=== PATIENT | female | born 1990 | race Hispanic/Latino ===

== ENCOUNTER 2018-05-26 20:41 | Emergency (ER) | payer SELFPAY ==
[2018-05-26 23:20] LABS: BASO # 0.1 K/uL (0.0-0.2); BASO % 1.2 % (0.0-2.0); EOS # 0.1 K/uL (0.0-0.7); EOS % 1.7 % (0.0-4.0); HEMOGLOBIN 13.3 g/dL (12.0-16.0); LYMPH # 2.1 K/uL (1.0-4.3); LYMPH % 33.5 % (20.0-40.0); MEAN CELL VOLUME 92.9 fl (81.0-99.0); MEAN CORPUSCULAR HEMOGLOBIN 31.3 pg (27.0-31.0); MEAN CORPUSCULAR HGB CONC 33.7 g/dL (33.0-37.0); MEAN PLATELET VOLUME 10.7 fl (7.2-11.7); MONO # 0.6 K/uL (0.0-0.8); MONO % 10.3 % (0.0-10.0); NEUT # 3.3 K/uL (1.8-7.0); NEUT % 53.3 % (50.0-75.0); RBC 4.25 Mil/uL (3.80-5.20); RED CELL DISTRIBUTION WIDTH 13.1 % (11.5-14.5); WHITE BLOOD COUNT 6.2 K/uL (4.8-10.8)
[2018-05-26 23:29] LABS: BLOOD UREA NITROGEN 8 mg/dl (7-17); CALCIUM 9.4 mg/dL (8.4-10.2); GFR NON-AFRICAN AMERICAN > 60
--- NOTE | 2018-05-26 23:37 | ED PDOC ---
Lower Extremity Pain/Injury Time Seen by Provider: 05/26/18 22:47 Chief Complaint (Nursing): Lower Extremity Problem/Injury History Per: Patient History/Exam Limitations: no limitations Onset/Duration Of Symptoms: Days Current Symptoms Are (Timing): Still Present Additional Complaint(s): 27 year old F with no PMHx presenting with leg ulcer to L lower extremity. States she sustained a cut one month ago an since then the wound has grown deeper and further inwards. Went to an urgent care yesterday and was prescribed keflex of which she's taken 4 doses so far. PAtient states she was sent from Urgent Care today to the ER to rule out a possible bone infection. Seven has no fevers, chills, nausea, vomiting, or any other symptoms. PMD: none Past Medical History Reviewed: Historical Data, Nursing Documentation, Vital Signs Vital Signs: Last Vital Signs Temp 98.3 F 05/26/18 22:35 Pulse 70 05/26/18 22:35 Resp 17 05/26/18 22:35 BP 118/73 05/26/18 22:35 Pulse Ox 100 05/26/18 22:35 - Medical History PMH: No Chronic Diseases - Family History Family History: States: Unknown Family Hx - Home Medications Home Medications: Ambulatory Orders Medication Instructions Recorded Amoxicillin/Clavulanate [Augmentin 1 tab PO BID 10 Days #20 tab 05/27/18 875 MG-125 MG] - Allergies Allergies/Adverse Reactions: Allergies Allergy/AdvReac Type Severity Reaction Status Date / Time No Known Allergies Allergy Verified 05/26/18 22:34 Physical Exam - Reviewed Nursing Documentation Reviewed: Yes Vital Signs Reviewed: Yes - Physical Exam Appears: Positive for: Well, Non-toxic, No Acute Distress Head Exam: Positive for: ATRAUMATIC Skin: Positive for: Normal Color, Warm, DRY Eye Exam: Positive for: EOMI, Normal appearance, PERRL ENT: Positive for: Normal ENT Inspection Neck: Positive for: Normal, Painless ROM Cardiovascular/Chest: Positive for: Regular Rate, Rhythm Respiratory: Positive for: CNT, Normal Breath Sounds Extremity: Positive for: Other (Ulcer to anterior portion of tibia, distal, minimal surrounding erythema with hypertrophic edges, tender; distal neurovascularly intact) - Laboratory Results Result Diagrams: 05/26/18 23:10 05/26/18 23:10 - ECG O2 Sat by Pulse Oximetry: 100 Pulse Ox Interpretation: Normal Medical Decision Making Medical Decision MakinPM Patient presenting with leg ulcer --Patient well appearing, normal vitals --Will check xray to eval for bony involvement --Pending labs 130AM --Xray shows no involvement --ESR and WBC normal --Podiatry resident saw patient, wound dressed --Will refer to Dr. Tineo --Well appearing upon discharge Disposition - Clinical Impression Clinical Impression: Leg ulcer - Disposition Referrals: Podiatry Clinic [Outside] Kam Aragon DPM [Staff Provider] - Disposition: Routine/Home Disposition Time: 01:26 Condition: STABLE Prescriptions: Amoxicillin/Clavulanate [Augmentin 875 MG-125 MG] 1 tab PO BID 10 Days #20 tab Instructions: Varicose Veins and Other Vein Disease in the Legs Forms: [facility] (Citizen Of [place])
--- NOTE | 2018-05-27 01:00 | CP.PCM.CON ---
History of Present Illness - History of Present Illness History of Present Illness: Podiatry consult note for Dr. Garcia, 27 year old F with no PMHx presenting with leg ulcer to L lower extremity seen in the ED with her significant other. States she sustained a cut one month ago an since then the wound has grown deeper and further inwards. Went to an urgent care yesterday and was prescribed keflex of which she's taken 4 doses so far. Patient states she was sent from Urgent Care today to the ER to rule out a po ssible bone infection. Patient states the wound has gotten worse over time. [facility]. Patient has no fevers, chills, nausea, vomiting, or any other symptoms. PMD: none Past Patient History - Past Social History Smoking Status: Never Smoked - PSYCHIATRIC Hx Substance Use: No Meds Home Medications: Home Medication List Medication Instructions Recorded Confirmed Type Amoxicillin/Clavulanate [Augmentin 1 tab PO BID 10 Days #20 tab 05/27/18 Rx 875 MG-125 MG] Allergies/Adverse Reactions: Allergies Allergy/AdvReac Type Severity Reaction Status Date / Time No Known Allergies Allergy Verified 05/26/18 22:34 Physical Exam - Constitutional Appears: Well, Non-toxic, No Acute Distress - Head Exam Head Exam: ATRAUMATIC, NORMOCEPHALIC - Eye Exam Eye Exam: EOMI, Normal appearance Pupil Exam: NORMAL ACCOMODATION, PERRL - ENT Exam ENT Exam: Mucous Membranes Moist - Neck Exam Neck exam: Positive for: Normal Inspection - Respiratory Exam Respiratory Exam: Clear to Auscultation Bilateral, NORMAL BREATHING PATTERN - Cardiovascular Exam Cardiovascular Exam: REGULAR RHYTHM, +S1, +S2 - GI/Abdominal Exam GI & Abdominal Exam: Normal Bowel Sounds - Extremities Exam Additional comments: Vascular: DP/PT pulses are palpable, CFT <3 secs x 5, TG warm to warm, mckayla wound erythema, no streaking noted. derm: open ulcer noted to the anterior aspect of left mid leg with fibrogranular base, no malodor, serous drainage noted, mckayla wound erythema, measuring appr oximately 1.5 x 2.0 x 2 cm. no tracking or tunneling noted, no purulent drainage, no other open lesions neuro: protective sensation intact via [place] 09/11 ortho: pain on palpation to the wound, no pain with ROM of the ankle or foot joint, no pain on calf compression. - Back Exam Back exam: NORMAL INSPECTION - Neurological Exam Neurological exam: Alert Results - Vital Signs Recent Vital Signs: Last Vital Signs Temp 98.3 F 05/26/18 22:35 Pulse 70 05/26/18 22:35 Resp 17 05/26/18 22:35 BP 118/73 05/26/18 22:35 Pulse Ox 100 05/26/18 23:38 - Labs Result Diagrams: 05/26/18 23:10 05/26/18 23:10 Labs: Laboratory Results - last 24 hr 05/26/18 05/26/18 23:10 23:10 WBC 6.2 RBC 4.25 Hgb 13.3 Hct 39.5 MCV 92.9 MCH 31.3 H MCHC 33.7 RDW 13.1 Plt Count 195 MPV 10.7 Neut % (Auto) 53.3 Lymph % (Auto) 33.5 [place] % (Auto) 10.3 H Eos % (Auto) 1.7 Baso % (Auto) 1.2 Neut # (Auto) 3.3 Lymph # (Auto) 2.1 [place] # (Auto) 0.6 Eos # (Auto) 0.1 Baso # (Auto) 0.1 Sodium 137 Potassium 3.7 Chloride 105 Carbon Dioxide 20 L Anion Gap 16 BUN 8 Creatinine 0.6 L Est GFR ( Amer) > 60 Est GFR (Non-Af Amer) > 60 Random Glucose 93 Calcium 9.4 Assessment & Plan - Assessment and Plan (Free Text) Assessment: 27 yo female seen at bedside in the ED with no Pmhx with nonhealing wound to the left midleg. Plan: Patient seen and evaluated History and plan discussed in detail with the attending, Dr Garcia Labs and vitals are reviewed; WBC 6.2 Cultures of the wound taken and ordered x-rays of the leg: no bony abnormalities Patients wound cleansed with betadine and dressed with betadine, telfa, DSD, YANI Patient advised to follow up with Dr. Garcia within a week Rx augmentin 875 mg BID x 10 days Patient advised to return to ED if symptoms worsen Thank you for the consult.
[2018-05-27 01:49] VITALS: BP 103/52; PULSE 64; RESP 14; TEMP 98.9; O2SAT 98
--- NOTE | 2018-05-27 11:47 | RAD ---
Date of service: 05/26/2018 PROCEDURE: Radiographs of the left tibia and fibula. HISTORY: ulceration to leg, deep to bone COMPARISON: None available. TECHNIQUE: Frontal and lateral views obtained. FINDINGS: BONES: No fracture or destructive lesion. JOINT SPACES: Unremarkable. OTHER FINDINGS: Small pretibial cutaneous ulceration identified. IMPRESSION: No radiographic evidence of osteomyelitis.
== END 2018-05-27 01:49 | disposition home or self-care (01) ==
LOC: H.ER 20:41
DX: L97.829 Non-pressure chronic ulcer of other part of left lower leg with unspecified severity (principal)